=== PATIENT | female | born 1980 | race Caucasian/White ===

== ENCOUNTER 2020-11-01 13:52 | Emergency (ER) | payer OTHER ==
[~2020-11-01] VITALS: Ht 152.4 cm; Wt 69.9 kg
[~2020-11-01 13:52] MED LIST: AMOXICILLIN500 MG PO; ASPIRIN81 MG PO; ATIVAN1 MG PO; Anafranil25 MG PO; BENTYL10 MG PO; CIPRO250 MG PO; CLARITIN10 MG PO; DARVOCET N 1001 TAB PO; DIFLUCAN150 MG PO; EFFEXOR XR150 M1 PO; EFFEXOR XR75 M1 PO; EFFEXOR25 MG PO; FIORICET 325 MG1 TAB PO; FLUVOXAMINE100 MG PO; IBU-8800 MG PO; IMITREX ST6 MG/0.5 M SC; KLONOPIN2 MG PO; LIPITOR20 MG PO; MIRAPEX0.5 MG PO; MOTRIN 600 MG E4 TAB PO; NORCO 7.5-3251 EACH PO; PAXIL10 MG PO; PAXIL30 M2 PO; PERCOCET 325 MG1 TA2 PO; PRENATAL1 TA3 PO; PRILOSEC40 MG PO; PROZAC40 MG PO; SUMAVEL DO6 MG/0.5 M SC; TRAMADOL HCL50 MG PO; TRAZADONE HYDR100 MG PO; TRIMOX500 MG PO; TYLENOL W/CODEI1 TA2 PO; ULTRAM50 MG PO; VICO75300 PO; VICODIN 5/500 505 MG PO; VITAMIN D-32000 UNI1 PO; VITAMIN D1000 IU PO; VYVANSE30 MG PO; XANAX0.25 MG PO; XANAX1 MG PO; [UNRECOGNIZED DRUG - REMARK] PO
[2020-11-01 15:11] LABS: BILIRUBIN Negative (Negative); BLOOD Negative (Negative); CLARITY Clear (Clear); COLOR Yellow (Yellow); GLUCOSE Negative (Negative); KETONE Negative (Negative); LEUKO ESTERASE 2+ (Negative); NITRITE Negative (Negative); PH 6.5 (4.5-8.0); UROBILINOGEN 0.2 E.U./dl (0.0-1.0)
[2020-11-01 15:21] LABS: BACTERIA 1+
[2020-11-01] MEDS ORDERED: MACROBID100 M1 PO (16:04)
== END 2020-11-01 17:52 | disposition home or self-care (01) ==
LOC: ED 13:52
PROVIDERS: Nurse Practitioner
DX: S50.811A Abrasion of right forearm, initial encounter (principal); F32.9 Major depressive disorder, single episode, unspecified; F41.9 Anxiety disorder, unspecified; J44.9 Chronic obstructive pulmonary disease, unspecified; F17.200 Nicotine dependence, unspecified, uncomplicated; Z79.899 Other long term (current) drug therapy; Z79.82 Long term (current) use of aspirin; Z88.6 Allergy status to analgesic agent; Z98.890 Other specified postprocedural states; Y08.89XA Assault by other specified means, initial encounter; Y93.89 Activity, other specified; Y92.89 Other specified places as the place of occurrence of the external cause; Y99.8 Other external cause status

== ENCOUNTER 2020-11-29 20:11 | Emergency (ER) | payer OTHER ==
[~2020-11-29] VITALS: Ht 154.9 cm; Wt 62.6 kg
[~2020-11-29 20:11] MED LIST changes: +MACROBID100 M1 PO
[2020-11-29] MEDS ORDERED: TRAZODONE50 MG PO (20:30)
[2020-11-29] MEDS ORDERED: PAXIL40 M1 PO (20:30)
[2020-11-29 20:48] LABS: BASO # 0.1 10*3/uL (0.0-0.1); BASO % 0.5 % (0.0-1.0); EOS # 0.1 10*3/uL (0.0-0.4); EOS % 0.8 % (1.0-4.0); HEMATOCRIT 34.1 % (37.0-47.0); LYMPH # 3.9 10*3/uL (1.3-4.4); MEAN CORPUSCULAR HGB 28.8 pg (27.0-31.0); MEAN CORPUSCULAR HGB CONC 33.1 g/dl (33.0-37.0); MEAN PLATELET VOLUME 10.3 fl (9.6-12.3); MONO # 0.9 10*3/uL (0.1-1.0); MONO % 7.3 % (3.0-9.0); NEUT # 7.9 10*3/uL (2.3-7.9); NEUT % 61.1 % (47.0-73.0); PLATELET COUNT AUTOMATED 437 10*3/uL (130-400); RED BLOOD COUNT 3.92 10*6/uL (4.10-5.10); RED CELL DISTRI WIDTH 13.1 % (0-14.5); WHITE BLOOD COUNT 12.9 10*3/uL (4.8-10.8)
[2020-11-29 21:02] LABS: ALKALINE PHOSPHATASE 111 U/L (45-117); BUN 12 mg/dl (7-24); CHLORIDE 104 mmol/L (98-107); CREATININE 0.87 mg/dL (0.55-1.02); POTASSIUM 3.1 mmol/L (3.5-5.1); SGOT/AST 18 IU/L (3-35); SGPT/ALT 15 U/L (12-78); SODIUM 139 mmol/L (136-145); TOTAL PROTEIN 7.7 gm/dL (6.4-8.2)
[2020-11-29 21:05] LABS: ACETAMINOPHEN (TYLENOL) < 5.0 ug/ml (10-30)
[2020-11-29 21:14] LABS: ETHYL ALCOHOL < 3.0 mg/dl (<3)
[2020-11-29 21:23] LABS: CPK 387 U/L (26-192)
[2020-11-29 21:24] LABS: BETA-HCG, QUANT < 1.0 mIU/mL (1-3)
[2020-11-29 22:37] LABS: BILIRUBIN Negative (Negative); BLOOD Negative (Negative); CLARITY Clear (Clear); COLOR Yellow (Yellow); GLUCOSE Negative (Negative); KETONE Trace (Negative); LEUKO ESTERASE 1+ (Negative); NITRITE Negative (Negative); PH 6.5 (4.5-8.0)
[2020-11-29 22:46] LABS: URINE AMPHETAMINES > 1000 (1000ng/ml); URINE BARBITURATES < 200 (200ng/ml); URINE BENZODIAZEPINES < 200 (200ng/ml); URINE CANNABINOIDS (THC) < 50 (50ng/ml); URINE COCAINE < 300 (300ng/ml); URINE METHADONE < 300 (300ng/ml); URINE OPIATES < 300 (300ng/ml)
[2020-11-29 22:51] LABS: URINE PHENCYCLIDINE < 25 (25ng/ml)
[2020-11-29 22:54] LABS: BACTERIA TRACE; EPITHELIAL CELLS 16-20
== END 2020-11-30 02:20 ==
LOC: ED 20:11
PROVIDERS: Student in an Organized Health Care Education/Training Program
DX: F31.9 Bipolar disorder, unspecified (principal); Z20.822 Contact with and (suspected) exposure to COVID-19; Z79.899 Other long term (current) drug therapy